=== PATIENT | female | born 1940 | race Caucasian/White ===

== ENCOUNTER 2025-01-15 11:12 | Inpatient (IN) | payer MEDICARE, OTHER, SELFPAY ==
[2025-01-13] VITALS (10 sets, daily range): BP systolic 110–199; BP diastolic 46–97; BMI 24.7; BMI 23.4
--- NOTE | 2025-01-13 13:46 | ED.GENMED ---
History of Present Illness
General
Chief Complaint: Dizziness
Source: family
Exam Limitations: none
Time Seen by Provider: 01/13/25 13:43
Nursing documentation reviewed up to this point in time: agreed with
History of Present Illness
History of Present Illness:
Patient is a 84-year-old female who presents to the ER for evaluation. Daughter reports they took her out to breakfast this morning and she did not seem herself. She seems very weak. She normally lives at home with her and walks around
but today is not acting herself. Patient presents awake alert she has no complaints. Patient had testing prior to my exam and she is flu positive. She does have a fever did not receive any Tylenol yet. Daughter reports she has not noticed a
cough however patient has audible cough here during my exam. Pt complains of feeling very tired.
Past History
Past History
ED Past Medical History: HTN, Hypothyroidism and Other (Thrombocythemia)
Social History
Personal:
Review of Systems
Review of Systems
Allergies reviewed?: Yes
Other source history: family
All Other Systems: ROS reviewed and negative except as documented in HPI and ROS
Constitutional: Reports fatigue
EENT: Reports no symptoms
Respiratory: Reports no symptoms
Cardiac: Reports no symptoms
ABD/GI: Reports no symptoms
: Reports no symptoms
Musculoskeletal: Reports no symptoms
Skin: Reports no symptoms
Neurological: Reports no symptoms
Psychiatric: Reports no symptoms
Phy Exam
General Physical Exam
General Presentation: no apparent distress
General age: appears stated age
General Skin: warm and dry
General Habitus: normal
General Mental: alert
General Hydration: dry mucous membranes
Cardiovascular Exam
Cardiovascular Exam: regular rate/rhythm, no murmur and normal peripheral pulses
Pulmonary Exam
Pulmonary Exam: lungs clear, no respiratory distress and other (+ cough )
Neurological Exam
Neurological Exam: alert and oriented x3
Musculoskeletal Exam
Musculoskeletal Exam: full ROM
Skin Exam
Skin Exam: normal color and warm/dry
Psychiatric Exam
Psychiatric Exam: normal mood/affect
Course
Orders/Labs/Results
Orders:
Orders
01/13/25 12:35
EKG [Electrocardiogram (*1)] Urgent
Reason for Study: Vertigo / Dizzy
EKG- Treatment ONCE
01/13/25 14:12
Complete Blood Count/With Diff Urgent
Comprehensive Metabolic Panel Urgent
Manual Differential Urgent
Troponin I Urgent
Influenza A+B Rapid Molecular Urgent
RIKI Source: Nasal Swab
Specimen Description:
01/13/25 14:13
COVID-19 Antigen Urgent
Source: Nasal Swab
01/13/25 14:51
0.9% Sodium Chloride 500 ml [Nss] 500 ml IV BOLUS
Acetaminophen [Tylenol] 650 mg PO NOW STA
01/13/25 Dinner
Regular
At Your Request: Full Participation
01/13/25 16:21
Chest [CR Chest - 2 Views ] Urgent
Comment:
Reason For Exam: cough/fever
01/13/25 16:33
Oseltamivir Phosphate [Tamiflu] 75 mg PO NOW STA
01/13/25 17:01
Admit/Transfer Patient As Directed
Co-Sign Provider:
Level of Care: Observation services
Assign to:: Medical/Surgical
Physician / Group: nery
Diagnosis: influenza
Code Status As Directed
Resuscitation Status: Full Code
PRN Pain Medication Management As Directed
May give lesser potent ordered pain med per pt: Yes
preference::
Protocol:: Medication orders for pain may be administered in a
manner that supports deferring to patient preference
when the pt is:
- Requesting an ordered lesser potent pain medication.
Least to most potent pain medications are defined
as: acetaminophen < NSAID < tramadol < opioids
(morphine, oxycodone, hydromorphone).
- Requesting a lesser dose of the same medication IF
ORDERED.
- Requesting a less intrusive route of administration
if both routes are prescribed by the provider (PO <
IV).
01/13/25 20:04
0.9% Sodium Chloride 1000 ml [Nss] 1,000 ml IV 70 mls/hr
Acetaminophen [Tylenol] 650 mg PO Q4HPRN PRN
Heparin 5,000 units SC Q12
01/13/25 20:04
Activity As Directed
Activity Level: As Tolerated
Vital Signs As Directed
Frequency: Per unit guidelines
DX Deep Vein Thrombosis Video Routine
01/14/25 06:00
Complete Blood Count/With Diff IN AM
Comprehensive Metabolic Panel IN AM
01/14/25 08:00
Oseltamivir Phosphate [Tamiflu] 30 mg PO BID
Abnormal Lab Results
01/13/25
14:12
WBC 3.5 L 10^3/uL
(4.8-10.8)
RBC 2.76 L 10^6/uL
(4.20-5.40)
Hgb 9.0 L g/dL
(12.0-16.0)
Hct 28.9 L %
(37.0-47.0)
MCV 104.7 H fL
(81.0-99.0)
MCH 32.6 H pg
(27.0-31.0)
MCHC 31.1 L g/dL
(33.0-37.0)
RDW 20.0 H %
(11.5-14.5)
MPV 11.5 H fL
(7.4-10.4)
Segmented Neutrophils 77 H %
(42-75)
Lymphocytes (Manual) 10 L %
(20-51)
Sodium 132 L mmol/L
(135-145)
BUN 23 H mg/dl
(7-17)
Glucose 119 H mg/dl
(70-99)
01/13/25 14:12
01/13/25 14:12
Vital Signs
Initial and Last Documented VS:
Initial Vital Signs
Temp Pulse Resp BP Pulse Ox
99.3 F 95 16 199/97 93
01/13/25 12:28 01/13/25 12:28 01/13/25 12:28 01/13/25 12:28 01/13/25 12:28
Last Documented Vital Signs
Temp Pulse Resp BP Pulse Ox
99.1 F 76 19 131/58 98
01/13/25 20:32 01/13/25 20:32 01/13/25 20:32 01/13/25 20:32 01/13/25 20:32
MDM/Problems Addressed
Differential Diagnosis Includes:
Not limited to weakness dehydration UTI infection COVID, influenza
MDM/Problems Addressed:
Patient is a 84-year-old female brought by family for weakness. Patient was found to be flu positive. Patient is awake alert answering questions. She has no complaints. Family does not report cough patient does have an audible cough here.
Patient arrives with temperature of 100.5 she is not hypoxic will obtain chest x-ray however with weakness and flu positive will plan for admission. Labs reviewed white count is low 3.5 which does go along with viral illness hemoglobin is 9.0
platelets are 190, patient has 3% bands although labs reviewed patient has 1% blasts,.
Patient is very weak will admit for weakness
*Radiology
Radiology exam reviewed: radiology read reviewed
*Pulse Oximetry
Patient hypoxic: no
*EKG
Interpreted by ED Provider?: Yes
Heart Rate: 85
Rate: normal
Rhythm: sinus
Ischemia: no ischemia
*Critical Care Note
Total Time (30-74mins, 75-104mins- exclusive of procedures): Not Applicable
ED Attending Note
-
Portions of this chart may have been created with voice recognition software.� Occasional wrong word or��sound alike� substitutions may have occurred due to the inherent limitations of voice recognition software.
Discharge Plan
Departure
Patient Disposition: Admit
Date of Disposition: 01/13/25
Time of Disposition: 16:38
Admit to: Med/Surg
Admit to doctor: hospitalist
Presentation/result/management discussed w/ accepting MD/DO: Hospitalist
Patient with high blood pressure during this ER visit?: Yes
Condition: Fair
Covid-19: Not Applicable
Discharge Problem:
Influenza A
Interventions
Interventions:
*Risk Screen - Suicide Last Done: 01/13/25 12:28
*General Assessment Last Done: 01/13/25 12:28
*Neglect/Abuse Screening Last Done: 01/13/25 12:28
*Nursing Disposition Last Done: 01/13/25 19:55
ED- Neurological Assessment Last Done: 01/13/25 13:54
ED Swallowing Screen Last Done: 01/13/25 15:06
Discharge Date and Time
Discharge Date/Time: 01/13/25 19:55
[2025-01-13 14:28] LABS: Hematocrit 28.9 % (37.0-47.0); Mean Corp Hgb Conc. 31.1 g/dL (33.0-37.0); Mean Corpuscular Hgb 32.6 pg (27.0-31.0); Mean Corpuscular Volume 104.7 fL (81.0-99.0); Mean Platelet Volume 11.5 fL (7.4-10.4); Platelet Count 190 10^3/uL (130-400); Red Blood Cell Count 2.76 10^6/uL (4.20-5.40); White Blood Cell Count 3.5 10^3/uL (4.8-10.8)
[2025-01-13 14:39] LABS: ALT (SGPT) 11 U/L (0-35); AST (SGOT) 32 U/L (14-36); Alkaline Phosphatase 77 U/L (38-126); Blood Urea Nitrogen 23 mg/dl (7-17); Carbon Dioxide 25 mmol/L (22-30); Chloride 100 mmol/L (98-107); Glucose 119 mg/dl (70-99); Potassium 4.3 mmol/L (3.5-5.1); Sodium 132 mmol/L (135-145); Total Protein 6.6 g/dl (6.3-8.2); eGFR > 60.00
[2025-01-13 14:50] LABS: Troponin I < 0.012 ng/ml
[2025-01-13 14:52] LABS: COVID-19 Antigen Negative (Negative)
[2025-01-13] MEDS: TYLENOL 650 MG PO ×2 (14:54→23:08)
[2025-01-13] MEDS: NSS 500 IV (14:54)
[2025-01-13 14:57] LABS: Absolute Neutrophils -Man Diff 2.8 10^3/uL (1.4-6.5); Anisocytosis 1+; Band Neutrophils 3 % (0-3); Blasts 1 % (-); Hypochromasia 1+; Lymphocytes 10 % (20-51); Metamyelocytes 1 % (-); Monocytes 6 % (2-9); Myelocytes 2 % (-); Normal RBC Morphology No; Nucleated Red Blood Cells 8 (-); Platelets Checked Yes; Segmented Neutrophils 77 % (42-75)
[2025-01-13 14:58] LABS: Hypersegmented Neutrophil 2+; Ovalocytes 2+; Tear Drop Red Blood Cells 2+
[2025-01-13 14:59] LABS: Basophilic Stippling 1+; Polychromasia 2+; Total Cells Counted 100
[2025-01-13] MEDS: TAMIFLU 75 MG PO (17:02)
--- NOTE | 2025-01-13 17:04 | HPS.HSE ---
Addendum entered and electronically signed by Alda Laird MD 01/13/25 21:19:
Chest x-ray shows moderate opacity in the left lower lobe suggestive of pneumonia. Will start ceftriaxone/doxycycline.
Original Note:
Family Physician
-
Family Physician: Pauline Martines
Chief Complaint
-
lethargy
History of Present Illness
84-year-old female past medical history of hypertension, hypothyroidism, essential thrombocytosis, gout, presenting to the emergency room for weakness. Daughter reports they took her to breakfast this morning she did not seem herself. She normally
lives with her and walks around but today she is not acting herself and more lethargic. She was dizzy this morning. Daughter denies any cough but does have a cough here today. She did have fever. No chills. No shortness of breath or
chest pain or vomiting or diarrhea. No sick contacts.
She does not smoke or drink alcohol.
Medical History
Past Medical History
Past Medical History: Reports Other (hypertension, hypothyroidism, essential thrombocytosis, gout,)
Past Surgical History: Reports None
Social History
Tobacco: Non-smoker
Alcohol: None
Drug: None
Family History
Family History: Not pertinent
Allergies / Home Medications
Allergies reflects when Allergies were last updated in [employer].
Home Medications with original date entered in [employer]
Allergy/Medication List:
Allergies
Allergy/AdvReac Type Severity Reaction Status Date / Time
No Known Allergies Allergy Verified 05/27/23 10:51
Home Medications
levothyroxine 50 mcg tablet (Synthroid) 50 mcg PO DAILY 06/20/08
niacin 500 mg tablet 500 mg PO DAILY 05/08/15
hydroxyurea 500 mg capsule 500 mg PO SuTuThSa@0800 ##0 08/26/15
hydroxyurea 500 mg capsule 1,000 mg PO MOWEFR@0800,199912/17/16
metoprolol tartrate 25 mg tablet 50 mg PO BID 12/17/16
acetaminophen 325 mg tablet 650 mg PO Q4H PRN pain 05/14/23
ibuprofen 200 mg tablet (Advil) 200 mg PO Q6H PRN pain 05/14/23
naproxen sodium 220 mg tablet (Aleve) 220 mg PO Q12H PRN pain 05/14/23
omeprazole magnesium 20 mg tablet,delayed release (Prilosec OTC) 10 mg PO DAILY 05/14/23
Lactobacillus no.46-B. animalis-inulin 10 billion cell-100 mg capsule (Probiotic-10 (with inulin)) 1 cap PO DAILY 05/27/23
ascorbic acid (vitamin C) 250 mg tablet (Vitamin C) 250 mg PO DAILY 05/27/23
aspirin 325 mg tablet 325 mg PO DAILY 05/27/23
cholecalciferol (vitamin D3) 125 mcg (5,000 unit) tablet (Vitamin D3) 125 mcg PO DAILY 05/27/23
coQ10 (ubiquinol) 200 mg capsule 200 mg PO DAILY 05/27/23
hydrochlorothiazide 25 mg tablet 12.5 mg PO DAILY 05/27/23
lutein 20 mg tablet 20 mg PO DAILY 05/27/23
magnesium citrate,mag oxide 250 mg capsule 250 mg PO DAILY 05/27/23
zinc 50 mg tablet 50 mg PO DAILY 05/27/23
allopurinol 100 mg tablet 100 mg PO DAILY 01/13/25
donepezil 5 mg tablet 5 mg PO HS 01/13/25
Review of Systems
-
History Source: Patient
A 12 point ROS was completed and negative except as noted: Yes
Constitutional: Reports No Symptoms
EENT: Reports No Symptoms
Respiratory: Reports See HPI
Cardiac: Reports No Symptoms
Abdomen/GI: Reports No Symptoms
: Reports No Symptoms
Musculoskeletal: Reports No Symptoms
Skin: Reports No Symptoms
Neurological: Reports No Symptoms
Endocrine: Reports No Symptoms
Hematologic/Lymphatic: Reports No Symptoms
Psych: Reports No Symptoms
Physical Exam
Vital Signs
Vital Signs
Temp Pulse Resp BP Pulse Ox
100.5 F H 80 18 125/51 93
01/13/25 13:54 01/13/25 16:30 01/13/25 16:30 01/13/25 16:00 01/13/25 16:30
Physical Exam
General: Well Developed, Well Nourished and No Apparent Distress
HEENT: NormoCephalic, Moist mucous membranes and Atraumatic
Respiratory: Clear
Cardiac: S1/S2 and Regular Rhythm; No Murmur or Rub
GI: Soft, Non Tender, Non Distended and Normal Bowel Sounds; No Organomegaly
Rectal: Deferred by Provider
Musculoskeletal: No Clubbing, No Cyanosis and No Edema
Skin: No Rash
Neuro: Nonfocal/grossly intact
Laboratory Results
-
01/13/25 14:12
01/13/25 14:12
Laboratory Results
Total Bilirubin 1.0 mg/dl (0.2-1.3) 01/13/25 14:12
AST 32 U/L (14-36) 01/13/25 14:12
ALT 11 U/L (0-35) 01/13/25 14:12
Alkaline Phosphatase 77 U/L (38-126) 01/13/25 14:12
Troponin I < 0.012 ng/ml 01/13/25 14:12
Data Reviewed
-
Lab Data: Labs Reviewed by me
Old Records: Reviewed
Impression/Plan
-
IMPRESSION:
PLAN:
# Influenza A infection
-On 2 L oxygen
-Fever
-Today's day 1 of symptoms
-Chest x-ray pending
-Tamiflu
-IV fluids
Essential hypertension
-Continue metoprolol
-Hold hydrochlorothiazide
Hypothyroidism
-Continue levothyroxine
Essential thrombocytosis
-Continue Hydrea
Gout
-Continue allopurinol
GERD
-Continue omeprazole
Dementia
-Continue donepezil
Full code
DVT prophylaxis�heparin
Regular diet
--- NOTE | 2025-01-13 20:00 | PTCARENOTE ---
01/13: pt arrived via stretcher from ed to 2N. AAOx3. Lethargic. VSS. Pt on 2L NC. Pox 98. Pt oriented to room. Pt verbalizes understanding to ring for all transfers. Call og within reach.
[2025-01-13] MEDS: HEPARIN 5000 UNITS SC (22:15)
[2025-01-13] MEDS: STERILE WATER FOR INJECTION 10 ML IV (22:16)
[2025-01-13] MEDS: ROCEPHIN 1000 MG IV (22:17)
[2025-01-13] MEDS: VIBRAMYCIN 260 MG IV (22:24)
[2025-01-13] MEDS: NSS 1000 IV (22:25)
[2025-01-14 06:00] VITALS: BP 134/57
[2025-01-14 06:49] LABS: Hematocrit 27.7 % (37.0-47.0); Hemoglobin 8.7 g/dL (12.0-16.0); Mean Corp Hgb Conc. 31.4 g/dL (33.0-37.0); Mean Corpuscular Volume 104.9 fL (81.0-99.0); Mean Platelet Volume 12.2 fL (7.4-10.4); Platelet Count 152 10^3/uL (130-400); Red Blood Cell Count 2.64 10^6/uL (4.20-5.40); Red Cell Dist. Width 20.1 % (11.5-14.5); White Blood Cell Count 3.4 10^3/uL (4.8-10.8)
[2025-01-14 07:00] VITALS: BP 134/57
[2025-01-14 07:22] LABS: ALT (SGPT) < 10 U/L (0-35); AST (SGOT) 26 U/L (14-36); Albumin 3.6 g/dl (3.5-5.0); Alkaline Phosphatase 70 U/L (38-126); Blood Urea Nitrogen 18 mg/dl (7-17); Calcium 8.6 mg/dl (8.4-10.2); Carbon Dioxide 27 mmol/L (22-30); Chloride 100 mmol/L (98-107); Estimated Creatinine Clearance 41 ml/min; Glucose 90 mg/dl (70-99); Potassium 4.3 mmol/L (3.5-5.1); Sodium 135 mmol/L (135-145); Total Bilirubin 0.6 mg/dl (0.2-1.3); Total Protein 5.9 g/dl (6.3-8.2); eGFR > 60.00
[2025-01-14 07:48] LABS: Absolute Neutrophils -Man Diff 2.4 10^3/uL (1.4-6.5); Anisocytosis 1+; Band Neutrophils 4 % (0-3); Lymphocytes 21 % (20-51); Metamyelocytes 1 % (-); Monocytes 6 % (2-9); Myelocytes 1 % (-); Normal RBC Morphology No; Platelets Checked Yes; Segmented Neutrophils 67 % (42-75)
[2025-01-14 07:49] LABS: Basophilic Stippling Slight; Polychromasia 1+; Tear Drop Red Blood Cells 1+; Total Cells Counted 100
[2025-01-14] MEDS: TYLENOL 650 MG PO ×2 (07:56→16:53)
[2025-01-14] MEDS: VIBRAMYCIN 260 MG IV ×2 (07:57→20:13)
[2025-01-14] MEDS: TAMIFLU 30 MG PO ×2 (07:57→21:01)
[2025-01-14] MEDS: HEPARIN 5000 UNITS SC (07:57)
[2025-01-14] MEDS: HYDREA 500 MG PO (11:00)
--- NOTE | 2025-01-14 11:00 | CM ---
Reviewed the chart notes and spoke with the patient and her spouse at the bedside. The patient is admitted under observational status. The MARTINS letter was provided and explained. The patient had no questions with regards to the letter.
The patient resides with her spouse in a two story home with two steps to enter. The patient has a rolling walker, shower chair, and grab bars in shower. The patient reports no VN/SNF in the past. The patient's pharmacy of choice is the [facility]
[address] [place] [address]. continues to be available to patient/family and is monitoring medical plan for needs at discharge.
Plan: Discharge plans will depend on the patient's progress. The patient is currently on supplemental O2.
[2025-01-14] MEDS: NSS 1000 IV (13:12)
--- NOTE | 2025-01-14 13:18 | W.PN.HOSP.TC ---
Today's Communication/Plan
-
Continue antibiotics and Tamiflu
Maintenance IVF
Antipyretics
Wean oxygen
Assessment / Plan
Assessment / Plan
#Acute hypoxemic respiratory insufficiency
#Community-acquired pneumonia
#Influenza A
-Has required up to 2 L O2 here; flu positive in ED; chest x-ray with LLL opacity; leukopenic on arrival
-Symptomatically was on day 1; started on Tamiflu with ceftriaxone and doxycycline upon admission
-Suspect leukopenia is reactive to ongoing bacterial infection though cannot rule out relation to ET
-Appears comfortable in the room, SpO2 in the very high 90s on 2 L
Plan
-Continue doxycycline and ceftriaxone for 7-day course
-Continue Tamiflu for 5-day course
-Supportive IVF and Tylenol for fever
-Trend CBC and temperature curve
-SpO2 goal >90%
#H/O polymorphic VT s/p AICD
-No signs of AICD dysfunction here
-Unclear what provoked her episode of PMVT
-Home regimen includes beta-chas, magnesium supplement
#DEE noncompliant to CPAP
-Monitor for signs of hypercapnia here
-Encouraged follow-up with topography technician
#Paroxysmal AF
-Home regimen includes beta-chas; not on anticoagulant
-No known history of electrophysiologic intervention
-Heart rate WNL here, appears sinus
#Essential thrombocytosis
#Anemia of chronic disease
-JAK2 positive; Home regimen includes hydroxyurea 500 mg daily and full dose aspirin
-Platelet count here only at 152; previous labs with platelet count in the range of 500-700
-Monitor CBC and signs of thrombotic events
#Primary hypertension
-Last echo with mild concentric LVH
-Home regimen includes metoprolol and hydrochlorothiazide
-HCTZ currently held, blood pressure adequate without
#Hypothyroidism
-Unclear etiology; Home regimen includes levothyroxine supplement
-No signs of thyroid dysfunction at this time
#GERD
-Home regimen includes omeprazole
-No known history of Abraham's esophagus or erosive disease
#Gout
-Home regimen includes allopurinol
-No signs of gout flare at this
#Dementia
-Home regimen includes donepezil
Diet: Regular
DVT prophylaxis: SubQ heparin
CODE STATUS: Full code
Anticipated Discharge: 24 - 48 hours
Subjective/Interval History
-
Date of Service: January 14, 2025
Seen and examined at the bedside. No acute events reported overnight. AFVSS this morning on 2 L oxygen
States she feels well and breathing is improved.
Denies any new complaints
Objective Data
-
Labs:
Laboratory Results
01/14/25
06:13
WBC 3.4 L
Hgb 8.7 L
Hct 27.7 L
Plt Count 152
Sodium 135
Potassium 4.3
Chloride 100
Carbon Dioxide 27
BUN 18 H
Creatinine 0.9
Glucose 90
Calcium 8.6
Total Bilirubin 0.6
AST 26
ALT < 10
Alkaline Phosphatase 70
Vital Signs:
Vital Signs
Temp Pulse Resp BP Pulse Ox
99.1 F 82 18 134/57 98
01/14/25 10:45 01/14/25 07:00 01/14/25 07:00 01/14/25 07:00 01/14/25 07:00
I&O
01/13/25 01/14/25 01/15/25
06:59 06:59 06:59
Intake Total 420 / 420 1250 / 1250
Output Total 400 / 400
Balance 20 / 20 1250 / 1250
Review of Systems
-
History Source: Patient
All other systems: Reviewed and negative
Physical Exam
-
General: Well Developed, Well Nourished and No Apparent Distress
HEENT: Normocephalic, Atraumatic and Moist Mucous Membranes
Respiratory: Clear to Auscultation and Non Labored Respirations
Cardiac: Regular Rhythm, S1/S2 and Murmur; Negative Rub, JVD or Gallop
GI: Soft, Nontender, Nondistended and Normal Bowel Sounds
Musculoskeletal: No Clubbing, No Cyanosis and No Edema
Skin: Warm, Dry and Normal Turgor; Negative Rash
Neuro: AO x 3 and Nonfocal/Grossly Intact
Psych: Calm
Data Reviewed
-
Labs: Labs Reviewed by me and Discussed with Patient
[2025-01-14 15:00] VITALS: BP 132/61
[2025-01-14] MEDS: LOPRESSOR 50 MG PO (21:01)
[2025-01-14] MEDS: ARICEPT 5 MG PO (21:03)
[2025-01-14] MEDS: STERILE WATER FOR INJECTION 10 ML IV (21:56)
[2025-01-14] MEDS: ROCEPHIN 1000 MG IV (21:56)
[2025-01-14 23:29] VITALS: BP 113/50
[2025-01-15] MEDS: NSS 1000 IV (04:28)
[2025-01-15] MEDS: SYNTHROID 50 MCG PO (05:42)
[2025-01-15 06:46] LABS: Hematocrit 27.9 % (37.0-47.0); Hemoglobin 8.6 g/dL (12.0-16.0); Mean Corp Hgb Conc. 30.8 g/dL (33.0-37.0); Mean Corpuscular Hgb 32.3 pg (27.0-31.0); Mean Corpuscular Volume 104.9 fL (81.0-99.0); Platelet Count 154 10^3/uL (130-400); Red Blood Cell Count 2.66 10^6/uL (4.20-5.40); White Blood Cell Count 4.6 10^3/uL (4.8-10.8)
[2025-01-15 07:03] LABS: Blood Urea Nitrogen 18 mg/dl (7-17); Calcium 8.5 mg/dl (8.4-10.2); Carbon Dioxide 25 mmol/L (22-30); Chloride 104 mmol/L (98-107); Estimated Creatinine Clearance 41 ml/min; Glucose 80 mg/dl (70-99); Potassium 4.4 mmol/L (3.5-5.1); Sodium 136 mmol/L (135-145); eGFR > 60.00
[2025-01-15 07:10] VITALS: BP 140/67
[2025-01-15 07:37] LABS: Absolute Neutrophils -Man Diff 2.9 10^3/uL (1.4-6.5); Anisocytosis 1+; Band Neutrophils 1 % (0-3); Lymphocytes 28 % (20-51); Metamyelocytes 2 % (-); Monocytes 4 % (2-9); Myelocytes 2 % (-); Normal RBC Morphology No; Platelets Checked Yes; Segmented Neutrophils 63 % (42-75); Tear Drop Red Blood Cells 1+; Total Cells Counted 100
--- NOTE | 2025-01-15 08:30 | W.PN.HOSP.TC ---
Today's Communication/Plan
-
Antibiotics. Antiviral. Discharge planning
Assessment / Plan
Assessment / Plan
Physical exam:
General: No Apparent Distress
HEENT: Normocephalic, Atraumatic and Moist Mucous Membranes
Respiratory: Clear to Auscultation; Negative Wheezes, Rales or Rhonchi
Cardiac: Regular Rhythm and S1/S2
GI: Soft, Nontender and Nondistended
Musculoskeletal: No Clubbing, No Cyanosis and No Edema
Neuro: Awake, Alert and Oriented
Psych: Calm
A/P:
Respiratory insufficiency due to influenza and community-acquired pneumonia:
Continue IV ceftriaxone and oral Doxy and change to oral antibiotics
Continue oral Tamiflu
Discussed with at bedside
PT OT
Rest of medical problems:
History of polymorphic VT status post AICD
DEE
Paroxysmal A-fib
Myeloproliferative disorder with essential thrombocytosis
Hypertension
Hypothyroidism
Gout
GERD
Dementia
DVT prophylaxis:
Resume heparin subcu
CODE STATUS:
Full code
Anticipated Discharge: Within 24 hours
Subjective/Interval History
-
Date of Service: January 15, 2025
Feels better overall. Afebrile
Objective Data
-
Labs:
Laboratory Results
01/15/25
05:26
WBC 4.6 L
Hgb 8.6 L
Hct 27.9 L
Plt Count 154
Sodium 136
Potassium 4.4
Chloride 104
Carbon Dioxide 25
BUN 18 H
Creatinine 0.9
Glucose 80
Calcium 8.5
Vital Signs:
Vital Signs
Temp Pulse Resp BP Pulse Ox
97.5 F 66 17 140/67 93
01/15/25 07:10 01/15/25 07:10 01/15/25 07:10 01/15/25 07:10 01/15/25 07:10
I&O
01/14/25 01/15/25 01/16/25
06:59 06:59 06:59
Intake Total 420 / 420 3670 / 3670
Output Total 400 / 400
Balance 3670 / 3670
[2025-01-15] MEDS: ZYLOPRIM 100 MG PO (09:02)
[2025-01-15] MEDS: LOPRESSOR 50 MG PO ×2 (09:02→20:49)
[2025-01-15] MEDS: HYDREA 500 MG PO (09:02)
[2025-01-15] MEDS: ASPIRIN 325 MG PO (09:02)
[2025-01-15] MEDS: TAMIFLU 30 MG PO ×2 (09:02→20:49)
[2025-01-15] MEDS: VIBRAMYCIN 260 MG IV (09:19)
--- NOTE | 2025-01-15 14:09 | CM ---
tt from UR LOC changed to inpatient
IMM explained & signed. In chart
On room air
Await PT eval
PLAN: await PT eval
[2025-01-15 15:55] VITALS: BP 152/78
[2025-01-15 16:18] VITALS: BMI 23.4
[2025-01-15] MEDS: VIBRAMYCIN 100 MG PO (20:49)
[2025-01-15] MEDS: ARICEPT 5 MG PO (20:49)
[2025-01-15] MEDS: STERILE WATER FOR INJECTION 10 ML IV (20:49)
[2025-01-15] MEDS: HEPARIN 5000 UNITS SC (20:49)
[2025-01-15] MEDS: ROCEPHIN 1000 MG IV (20:50)
[2025-01-15] MEDS: TUMS CHEWABLE TABLET 200 MG PO (22:21)
[2025-01-15 23:00] VITALS: BP 137/68
[2025-01-16 00:28] VITALS: BMI 23.4
[2025-01-16] MEDS: SYNTHROID 50 MCG PO (06:28)
[2025-01-16 07:00] VITALS: BP 157/78
--- NOTE | 2025-01-16 08:39 | W.PN.HOSP.TC ---
Today's Communication/Plan
-
Discharge planning
Assessment / Plan
Assessment / Plan
Physical exam:
General: No Apparent Distress
HEENT: Normocephalic, Atraumatic and Moist Mucous Membranes
Respiratory: Clear to Auscultation; Negative Wheezes, Rales or Rhonchi
Cardiac: Regular Rhythm and S1/S2
GI: Soft, Nontender and Nondistended
Musculoskeletal: No Clubbing, No Cyanosis and No Edema
Neuro: Awake, Alert and Oriented
Psych: Calm
A/P:
Respiratory insufficiency due to influenza and community-acquired pneumonia:
Change IV antibiotics to oral antibiotics
Continue oral Tamiflu
Discussed with at bedside
Discussed with hospice case manager today
Plan to discharge today
Rest of medical problems:
History of polymorphic VT status post AICD
DEE
Paroxysmal A-fib
Myeloproliferative disorder with essential thrombocytosis
Hypertension
Hypothyroidism
Gout
GERD
Dementia
DVT prophylaxis:
Resume heparin subcu
CODE STATUS:
Full code
Anticipated Discharge: Today
Subjective/Interval History
-
Date of Service: January 16, 2025
No new events. On room air. Afebrile
Objective Data
-
Vital Signs:
Vital Signs
Temp Pulse Resp BP Pulse Ox
98.5 F 63 17 157/78 92
01/16/25 07:00 01/16/25 07:00 01/16/25 07:00 01/16/25 07:00 01/16/25 07:00
I&O
01/15/25 01/16/25 01/17/25
06:59 06:59 06:59
Intake Total 3670 / 3670 2290 / 2290
Balance 3670 / 3670 2290 / 2290
[2025-01-16] MEDS: VIBRAMYCIN 100 MG PO (08:52)
[2025-01-16] MEDS: ZYLOPRIM 100 MG PO (08:53)
[2025-01-16] MEDS: HEPARIN 5000 UNITS SC (08:53)
[2025-01-16] MEDS: OMNICEF 300 MG PO (08:53)
[2025-01-16] MEDS: ASPIRIN 325 MG PO (08:53)
[2025-01-16] MEDS: LOPRESSOR 50 MG PO (08:53)
[2025-01-16] MEDS: HYDREA 500 MG PO (08:53)
[2025-01-16] MEDS: TAMIFLU 30 MG PO (08:53)
[2025-01-16 09:57] VITALS: BP 160/78; BP 161/76; PULSE 61; O2SAT 95
--- NOTE | 2025-01-16 10:26 | CM ---
Patient seen bedside.
PT recommending home with VN, patient and spouse declined, they have 6 nurses and a MD in the family.
IMM reviewed and signed.
Plan:home no needs, spouse will transport.
--- NOTE | 2025-01-16 11:44 | PTCARENOTE ---
pt oob to chair and to the bathroom with x1 assist. abx transitioned to PO yesterday. pt with good appetite and completed hygiene in the bathroom this morning.
--- NOTE | 2025-01-16 12:59 | W.DCSUMMARY ---
Discharge Summary
Discharge Data
Date of Admission: 01/15/25
Date of Discharge: 01/16/25
-
Pending Results: No
Hospital Course
Patient 84 years old female came into the hospital with influenza and community-acquired pneumonia. She was given Tamiflu and antibiotics. Patient was taken off oxygen and she improved substantially. She participated with PT and OT and case
human capital manager did not identify any needs after discharge. Patient will be discharged in stable condition today. No other events were noticed.
Discharge duration: 35 minutes
Discharge Plan
-
Patient Disposition: Home (Routine Discharge)
Discharge Diagnosis/Procedures: Respiratory insufficiency. Influenza A. Pneumonia.
Diet: Low Cholesterol
Activity: As tolerated
Blood Work: Please PCP to order CBC, BMP within 1 week
Referrals:
Pauline Martines DO [Family Provider] - in less than 1 week
Prescriptions:
New
doxycycline hyclate 100 mg Capsule
100 mg PO BID 4 Days Qty: 8 0RF
cefdinir 300 mg Capsule
300 mg PO Q12 5 Days Qty: 10 0RF
oseltamivir 30 mg Capsule
30 mg PO BID 3 Days Qty: 6 0RF
Continued
levothyroxine [Synthroid] 50 MCG tablet
50 mcg PO DAILY
niacin 500 MG tablet
500 mg PO DAILY
hydroxyurea 500 MG capsule
1,000 mg PO DAILY
metoprolol tartrate 25 MG tablet
50 mg PO BID
naproxen sodium [Aleve] 220 mg Tablet
220 mg PO Q12H PRN (Reason: pain)
Patient Comments:
does not take it.
ibuprofen [Advil] 200 mg Tablet
200 mg PO Q6H PRN (Reason: pain)
acetaminophen 325 MG tablet
650 mg PO Q4H PRN (Reason: pain)
omeprazole magnesium [Prilosec OTC] 20 mg Tablet,Delayed Release (Dr/Ec)
10 mg PO DAILY
aspirin 325 mg Tablet
325 mg PO DAILY
ascorbic acid (vitamin C) [Vitamin C] 250 mg Tablet
250 mg PO DAILY
zinc 50 mg Tablet
50 mg PO DAILY
hydrochlorothiazide 25 mg Tablet
12.5 mg PO DAILY
cholecalciferol (vitamin D3) [Vitamin D3] 125 mcg (5,000 unit) Tablet
125 mcg PO DAILY
coQ10 (ubiquinol) 200 mg Capsule
200 mg PO DAILY
lutein 20 mg Tablet
20 mg PO DAILY
Probiotic-10 (with inulin) 10 billion cell -100 mg Capsule
1 cap PO DAILY
magnesium citrate,mag oxide 250 mg Capsule
250 mg PO DAILY
donepezil 5 mg tablet
5 mg PO HS
allopurinol 100 mg tablet
100 mg PO DAILY
hydroxyurea 500 MG capsule
500 mg PO R DAILY
Patient Comments:
pt only takes 500 mg Daily, recently changed to this dose.
Discharge Orders:
Discharge Patient (As Directed); Ordered 01/16/25
Ordered By: Jim Franz
Discharge Date and Time
Discharge Date/Time: 01/16/25 15:16
Print Language: CZECH
[2025-01-16 14:33] VITALS: BP 128/64
== END 2025-01-16 15:16 | disposition home or self-care (01) | DRG 194 ==
LOC: 2 NORTH 11:12
PROVIDERS: Emergency Medicine; Internal Medicine; Nurse Practitioner; ADMITTING PHYSICIAN Hospitalist; ATTENDING PHYSICIAN Hospitalist; EMERGENCY PHYSICIAN Emergency Medicine; FAMILY PHYSICIAN Family Medicine
DX: J10.00 Influenza due to other identified influenza virus with unspecified type of pneumonia (principal); D47.1 Chronic myeloproliferative disease; I10 Essential (primary) hypertension; K21.9 Gastro-esophageal reflux disease without esophagitis; F03.90 Unspecified dementia, unspecified severity, without behavioral disturbance, psychotic disturbance, mood disturbance, and anxiety; D47.3 Essential (hemorrhagic) thrombocythemia; G47.33 Obstructive sleep apnea (adult) (pediatric); I48.0 Paroxysmal atrial fibrillation; R06.89 Other abnormalities of breathing; R09.02 Hypoxemia; E03.9 Hypothyroidism, unspecified; M10.9 Gout, unspecified; D63.8 Anemia in other chronic diseases classified elsewhere; Z20.822 Contact with and (suspected) exposure to COVID-19; Z95.810 Presence of automatic (implantable) cardiac defibrillator; Z79.82 Long term (current) use of aspirin; Z79.899 Other long term (current) drug therapy; Z79.890 Hormone replacement therapy
CPT/HCPCS: 51798; 71046; 80048; 80053; 84484; 85025; 87502; 87811; 93005; 96360; 97116; 97163; 97167; 99285

== ENCOUNTER → 2025-09-21 11:10 | Outpatient (REF) | payer MEDICARE, OTHER, SELFPAY | LOC: RCS 11:10 | PROVIDERS: ATTENDING PHYSICIAN Internal Medicine Cardiovascular Disease; FAMILY PHYSICIAN Family Medicine | DX: Z95.810 Presence of automatic (implantable) cardiac defibrillator (principal) | CPT/HCPCS: 93306 ==